=== PATIENT | female | born 1940 | race Caucasian/White ===

== ENCOUNTER 2020-05-05 05:38 | Outpatient (RCR) | payer MEDICARE ==
[~2020-05-05] VITALS: Ht 152 cm; Wt 92.7 kg
[2020-05-05] MEDS ORDERED: ROPI1TAB PO (15:05)
[2020-05-05] MEDS ORDERED: LOSA25TA41 PO (15:05)
[2020-05-05] MEDS ORDERED: HYDR25TA4 PO (15:05)
== END 2020-05-05 15:16 | disposition home or self-care (01) ==
LOC: PREOP 05:38
PROVIDERS: ATTEND Otolaryngology Otolaryngology/Facial Plastic Surgery
DX: Z01.812 Encounter for preprocedural laboratory examination (principal); H65.02 Acute serous otitis media, left ear

== ENCOUNTER 2020-05-12 07:42 | Day surgery (SDC) | payer MEDICARE ==
[2020-05-11 08:40] VITALS: BP 164/94
[~2020-05-12] VITALS: Ht 152 cm; Wt 92.7 kg
[2020-05-12] VITALS (9 sets, daily range): BP systolic 120–155; BP diastolic 61–97
[~2020-05-12 07:42] MED LIST: HYDR25TA4 PO; LOSA25TA41 PO; ROPI1TAB PO
[2020-05-12] MEDS ORDERED: LACTATED RINGERS 1,000 ML IV PRN (08:30)
[2020-05-12] MEDS ORDERED: LEVO-129 PO (08:36)
[2020-05-12] MEDS ORDERED: fentaNYL INJECTION 100 MCG/2 ML AMP ONE (09:43)
--- NOTE | 2020-05-12 10:09 | Progress Note-Pre Operative ---
Pre-Operative Progress Note H&P Reviewed The H&P was reviewed, patient examined and no changes noted. Date Seen by Provider: May 12, 2020 Time Seen by Provider: 06:30 Date H&P Reviewed: May 12, 2020 Time H&P Reviewed: 06:30 Pre-Operative Diagnosis: Left Serous OM JUVENCIO DOZIER MD May 12, 2020 10:09
[2020-05-12] MEDS ORDERED: proPOfol 200 MG/20 ML (DIPRIVAN) VIAL IV ONE (10:10)
[2020-05-12] MEDS ORDERED: LIDOCAINE PF 2% 5 ML (XYLOCAINE) VIAL ONE (10:10)
[2020-05-12] MEDS ORDERED: ONDANSETRON 4 MG/2 ML (SDV) Z0FRAN ONE (10:10)
--- NOTE | 2020-05-12 10:10 | Progress Note-Post Operative ---
Post-Operative Progess Note Surgeon (s)/Ceramic Tile Installer (s) Surgeon JUVENCIO DOZIER MD Ceramic Tile Installer n/a Pre-Operative Diagnosis Left Serous OM Post-Operative Diagnosis same Post-Op Procedure Note Date of Procedure: May 12, 2020 Name of Procedure Performed: Left Myringotomy with T-Tube Description & Findings Description and Findings: n/a Anesthesia Type lma Estimated Blood Loss minimal Packing none. Specimen(s) collected/removed none JUVENCIO DOZIER MD May 12, 2020 10:10
[2020-05-12] MEDS ORDERED: SEVOFLURANE (ULTANE) 15 ML INHAL SOLN ONE (10:11)
[2020-05-12] MEDS ORDERED: APAP 325 MG/10.15 ML LIQ (TYLENOL) UDC PO PRN (10:15)
[2020-05-12] MEDS ORDERED: fentaNYL INJECTION 100 MCG/2 ML AMP IVP ONE (10:45)
[2020-05-12] MEDS ORDERED: MEPERIDINE (DEMEROL) INJ 50 MG/ML IVP ONE (10:45)
--- NOTE | 2020-05-12 10:54 | Anesthesia-General Post-Op ---
General Patient Condition Mental Status/LOC: Same as Preop Cardiovascular: Satisfactory Nausea/Vomiting: Absent Respiratory: Satisfactory Pain: Controlled Complications: Absent Post Op Complications Complications None Follow Up Care/Instructions Patient Instructions None needed. Anesthesia/Patient Condition Patient Condition Patient is doing well, no complaints, stable vital signs, no apparent adverse anesthesia problems. No complications reported per nursing. SELIN CEE CRNA May 12, 2020 10:54
[2020-05-12] MEDS ORDERED: GARAMYCIN LEFT EAR (11:55)
--- NOTE | 2020-05-12 12:23 | NUR ---
CALLED PATIENT'S PRESCRIPTION INTO [facility] AT THIS TIME.
== END 2020-05-12 12:20 | disposition home or self-care (01) ==
LOC: SDC 07:42
PROVIDERS: ATTEND Otolaryngology Otolaryngology/Facial Plastic Surgery
DX: J35.2 Hypertrophy of adenoids (principal); H65.23 Chronic serous otitis media, bilateral; I10 Essential (primary) hypertension; D64.9 Anemia, unspecified; M19.90 Unspecified osteoarthritis, unspecified site; G62.9 Polyneuropathy, unspecified; Z88.0 Allergy status to penicillin; Z91.040 Latex allergy status; Z88.5 Allergy status to narcotic agent; Z79.899 Other long term (current) drug therapy
CPT/HCPCS: 87081